=== PATIENT | female | born 1955 | race Two or more races ===

== ENCOUNTER 2024-11-01 04:34 | Inpatient (IN) | payer OTHER ==
[~2024-11-01] VITALS: Ht 152.4 cm; Wt 83.1 kg
[2024-11-01 04:58] LABS: HEMOGLOBIN 7.5 g/dL (12.0-16.0); MEAN CORPUSCULAR HEMOGLOBIN 28.6 pg (26.0-34.0); MEAN CORPUSCULAR HGB CONC 32.6 G/dL (31.0-37.0); MEAN CORPUSCULAR VOLUME 88 fL (80-100); PLATELET COUNT (AUTO) 32 K/uL (150-450); RED BLOOD CELL COUNT(AUTO) 2.62 MIL/uL (4.00-5.20); RED CELL DISTRIBUTION WIDTH 17.1 % (11.5-14.5); WHITE BLOOD COUNT (AUTO) 1.8 K/uL (4.5-11.0)
[2024-11-01 05:09] LABS: CALCIUM, TOTAL 8.1 mg/dL (8.8-10.5); CREATININE 2.69 mg/dL (0.60-1.30); POTASSIUM 4.3 mmol/L (3.5-5.1)
[2024-11-01 05:12] LABS: PROTHROMBIN TIME 16.4 SEC (9.4-11.6)
[2024-11-01 05:13] LABS: ALBUMIN 2.4 g/dL (3.4-5.0); BILIRUBIN,TOTAL 1.1 mg/dL (0.1-1.0); MAGNESIUM 2.5 mg/dL (1.80-2.40); PHOSPHORUS 3.2 mg/dL (2.5-4.9); TOTAL PROTEIN, SERUM 5.9 g/dL (6.4-8.2)
[2024-11-01 05:19] LABS: TROPONIN I-HIGH SENSITIVITY 14 ng/L (<51)
[2024-11-01 05:27] LABS: BAND NEUTROPHILS % (MANUAL) 0 % (0-5)
[2024-11-01 05:30] LABS: ALCOHOL, BLOOD (SERUM) < 3 mg/dL (0-10)
[2024-11-01 05:31] LABS: LACTIC ACID 2.1 mmol/L (0.4-2.0)
[2024-11-01] MEDS: LevETIRAcetam 1,000 MG in DEXTROSE 5%-WATER 100 ML IV ONE (05:36)
[2024-11-01 05:40] LABS: EOSINOPHILS % (MANUAL) 2 % (1-6); LYMPHOCYTES % (MANUAL) 11 % (22-44); MONOCYTES % (MANUAL) 10 % (2-9); SEGMENTED NEUTROPHILS % 77 % (40-70); TOTAL CELLS COUNTED 100
[2024-11-01 05:41] LABS: BUFFY COAT SMEAR PREP YES (NOT DONE)
[2024-11-01 06:23] LABS: INFLUENZA TYPE A NEGATIVE FOR TYPE A (NEGATIVE); INFLUENZA TYPE B NEGATIVE FOR TYPE B (NEGATIVE)
[2024-11-01] MEDS: LACTULOSE 200 GM/300 ML RECTAL SOLUTION PR ONE (06:23)
[2024-11-01 06:35] LABS: APPEARANCE,URINE CLEAR (CLEAR); BILIRUBIN,URINE NEGATIVE (NEGATIVE); COLOR,URINE LIGHT YELLOW (YELLOW); GLUCOSE, URINE (UA) NEGATIVE (NEGATIVE); KETONES,URINE NEGATIVE (NEGATIVE); LEUKOCYTE ESTERASE ,URINE NEGATIVE (NEGATIVE); NITRATE,URINE NEGATIVE (NEGATIVE); OCCULT BLOOD,URINE NEGATIVE (NEGATIVE); PH,URINE 5.5 (5.0-8.0); PH,URINE DRUG SCREEN 5.5 (5.0-8.0); PROTEIN,URINE NEGATIVE (NEGATIVE); SPECIFIC GRAVITIY, URINE 1.009 (1.003-1.030); UROBILINOGEN,URINE <=1.0 mg/dL (<=1.0)
[2024-11-01 06:41] LABS: ALCOHOL, URINE DRUG SCREEN NEGATIVE (NEGATIVE); AMPHET/METH SCREEN,URINE NEGATIVE (NEGATIVE); BARBITURATE SCREEN, URINE NEGATIVE (NEGATIVE); BENZODIAZEPINES SCREEN,URINE NEGATIVE (NEGATIVE); CANNABINOID SCREEN,URINE NEGATIVE (NEGATIVE); COCAINE SCREEN,URINE NEGATIVE (NEGATIVE); METHADONE SCREEN, URINE NEGATIVE (NEGATIVE); OPIATE SCREEN,URINE POSITIVE (NEGATIVE); PHENCYCLIDINE SCREEN,URINE NEGATIVE (NEGATIVE)
[2024-11-01 08:48] LABS: BACTERIA,URINE None Seen /HPF (None Seen); RBC,URINE 0-2 /HPF (0-2); SQUAMOUS EPITHELIAL CELL,UR Few /LPF (None Seen); WBC,URINE 0-2 /HPF (0-5)
[2024-11-01 11:05] LABS: TROPONIN I-HIGH SENSITIVITY 16 ng/L (<51)
[2024-11-01] MEDS ORDERED: VITA-369 PO (11:10)
[2024-11-01] MEDS ORDERED: LACT10SO10 PO (11:10)
[2024-11-01] MEDS ORDERED: CARV6.25 PO (11:10)
[2024-11-01] MEDS ORDERED: PANT-31 PO (11:10)
[2024-11-01] MEDS ORDERED: EZET10TA57 PO (11:10)
[2024-11-01] MEDS ORDERED: ANUSHCS PR (11:10)
[2024-11-01] MEDS ORDERED: CHOL25TA4 PO (11:10)
[2024-11-01] MEDS ORDERED: GLIP5TAB16 PO (11:10)
[2024-11-01] MEDS ORDERED: FURO40TA6 PO (11:10)
[2024-11-01] MEDS ORDERED: INSNPH SQ (11:10)
[2024-11-01] MEDS ORDERED: LACT1CAP58 PO (11:10)
[2024-11-01] MEDS ORDERED: HYDR10TA31 PO (11:10)
[2024-11-01] MEDS ORDERED: RIFAX550 PO (11:10)
[2024-11-01] MEDS ORDERED: MAGN400T57 PO (11:10)
[2024-11-01] MEDS ORDERED: THIA100V4 IM (11:10)
[2024-11-01 16:15] VITALS: BP 130/55; PULSE 90; RESP 19; TEMP 98.9; O2SAT 99
[2024-11-01 20:35] VITALS: BP 139/55; PULSE 76; RESP 14; TEMP 98.8; O2SAT 99
[2024-11-01 20:40] LABS: GLUCOMETER DEV NAME(LOC) 5S.2D; GLUCOSE,POINT OF CARE 124 MG/DL (70-110)
[2024-11-02 00:20] VITALS: BP 139/59; PULSE 73; RESP 16; TEMP 99.4; O2SAT 99
[2024-11-02 03:35] LABS: TROPONIN I-HIGH SENSITIVITY 15 ng/L (<51)
[2024-11-02 04:53] VITALS: BP 142/58; PULSE 72; RESP 14; TEMP 98.7; O2SAT 99
[2024-11-02] MEDS ORDERED: DEXTROSE 5%-0.45% SODIUM CHL 1,000 ML IV ONE (05:00)
[2024-11-02 06:11] LABS: GLUCOMETER DEV NAME(LOC) 5S.2D; GLUCOSE,POINT OF CARE 112 MG/DL (70-110)
[2024-11-02 06:11] LABS: GLUCOMETER DEV NAME(LOC) 5S.2D; GLUCOSE,POINT OF CARE 120 MG/DL (70-110)
[2024-11-02] MEDS: DEXTROSE 5%-0.45% SODIUM CHL 1,000 ML IV ONE (07:45)
[2024-11-02 08:39] LABS: BASOPHILS % (AUTO) 0.3 % (0.0-2.0); EOSINOPHILS % (AUTO) 1.6 % (1.0-6.0); HEMATOCRIT 22.2 % (36-46); HEMOGLOBIN 7.1 g/dL (12.0-16.0); LYMPHOCYTES # (AUTO) 0.2 K/uL (1.0-4.8); LYMPHOCYTES % (AUTO) 9.8 % (22.0-44.0); MEAN CORPUSCULAR HEMOGLOBIN 28.5 pg (26.0-34.0); MEAN CORPUSCULAR HGB CONC 32.2 G/dL (31.0-37.0); MEAN CORPUSCULAR VOLUME 89 fL (80-100); MONOCYTES # (AUTO) 0.2 K/uL (0.1-1.0); MONOCYTES % (AUTO) 9.6 % (2.0-9.0); NEUTROPHILS # (AUTO) 1.6 K/uL (1.8-7.7); NEUTROPHILS % (AUTO) 78.7 % (40.0-70.0); PLATELET COUNT (AUTO) 24 K/uL (150-450); RED CELL DISTRIBUTION WIDTH 17.4 % (11.5-14.5); WHITE BLOOD COUNT (AUTO) 2.1 K/uL (4.5-11.0)
[2024-11-02 08:42] VITALS: BP 140/52; PULSE 72; RESP 18; TEMP 99.5; O2SAT 98
[2024-11-02 08:53] LABS: CALCIUM, TOTAL 7.9 mg/dL (8.8-10.5); CREATININE 2.03 mg/dL (0.60-1.30); POTASSIUM 4.1 mmol/L (3.5-5.1)
[2024-11-02] MEDS: LACTULOSE 20 GM/30 ML SOLUTION UDCUP NG SCH (08:57)
[2024-11-02] MEDS ORDERED: DEXTROSE 50%-WATER 25 GM/50 ML SYRINGE IVP PRN (11:30)
[2024-11-02] MEDS ORDERED: INSULIN LISPRO 100 UNITS/ML SQ PRN (11:30)
[2024-11-02 12:16] VITALS: BP 127/57; PULSE 66; RESP 18; TEMP 99.3; O2SAT 99
[2024-11-02] MEDS: FUROSEMIDE 40 MG/4 ML VIAL IVP ONE (12:47)
[2024-11-02 16:14] VITALS: BP 140/55; PULSE 62; RESP 18; TEMP 98.7; O2SAT 100
[2024-11-02] MEDS ORDERED: LACT10SO10 PO (19:16)
== END 2024-11-02 18:10 | disposition short-term general hospital (02) | DRG 442 ==
LOC: EMS 04:35 → EDH 07:34 → 5S 16:01
PROVIDERS: ADMIT Hospitalist; ATTEND Hospitalist
DX: K76.82 Hepatic encephalopathy (principal); D61.818 Other pancytopenia; E11.22 Type 2 diabetes mellitus with diabetic chronic kidney disease; E78.00 Pure hypercholesterolemia, unspecified; E88.09 Other disorders of plasma-protein metabolism, not elsewhere classified; I12.9 Hypertensive chronic kidney disease with stage 1 through stage 4 chronic kidney disease, or unspecified chronic kidney disease; N18.9 Chronic kidney disease, unspecified; I25.10 Atherosclerotic heart disease of native coronary artery without angina pectoris; K74.60 Unspecified cirrhosis of liver; Z79.899 Other long term (current) drug therapy; Z88.1 Allergy status to other antibiotic agents; Z91.041 Radiographic dye allergy status; Z90.49 Acquired absence of other specified parts of digestive tract; Z86.718 Personal history of other venous thrombosis and embolism
CPT/HCPCS: 71045; 80048; 80053; 80307; 81001; 82140; 82948; 82962; 83605; 83735; 84100; 84484; 85009; 85025; 85610; 85730; 86850; 86900; 86901; 87804; 92610; 93005; 99285; G0378; G0480; J0712; J1940; J7060; 36415-L1; 36415-TC; 70450; 70450-TC

== ENCOUNTER 2024-12-18 08:00 | Inpatient (IN) | payer OTHER ==
[~2024-12-18] VITALS: Ht 152.4 cm; Wt 71.9 kg
[~2024-12-18 08:00] MED LIST: ANUSHCS PR; CARV6.25 PO; CHOL25TA4 PO; EZET10TA57 PO; FURO40TA6 PO; GLIP5TAB16 PO; HYDR10TA31 PO; INSNPH SQ; LACT1CAP58 PO; MAGN400T57 PO; PANT-31 PO; RIFAX550 PO; THIA100V4 IM; VITA-369 PO
[2024-12-18 08:15] LABS: HEMATOCRIT 26.6 % (36-46); HEMOGLOBIN 8.7 g/dL (12.0-16.0); MEAN CORPUSCULAR HEMOGLOBIN 29.2 pg (26.0-34.0); MEAN CORPUSCULAR HGB CONC 32.7 G/dL (31.0-37.0); MEAN CORPUSCULAR VOLUME 89 fL (80-100); PLATELET COUNT (AUTO) 30 K/uL (150-450); RED BLOOD CELL COUNT(AUTO) 2.98 MIL/uL (4.00-5.20); RED CELL DISTRIBUTION WIDTH 23.6 % (11.5-14.5); WHITE BLOOD COUNT (AUTO) 1.4 K/uL (4.5-11.0)
[2024-12-18 08:18] LABS: BAND NEUTROPHILS % (MANUAL) 0 % (0-5)
[2024-12-18 08:25] LABS: ANION GAP 8 mmol/L (8-16); CALCIUM, TOTAL 8.4 mg/dL (8.8-10.5); CARBON DIOXIDE 24 mmol/L (22-29); CHLORIDE 112 mmol/L (98-107); CREATININE 2.84 mg/dL (0.60-1.30); GLOMERULAR FILTR. RATE CALC 17 mL/min (>60); GLUCOSE,RANDOM 136 mg/dL (70-110); POTASSIUM 4.9 mmol/L (3.5-5.1); SODIUM SERUM 144 mmol/L (136-145); UREA NITROGEN, BLOOD 52 mg/dL (7-18)
[2024-12-18 08:30] LABS: PROTHROMBIN TIME 15.8 SEC (9.4-11.6)
[2024-12-18 08:34] LABS: ALANINE AMINOTRANSFERASE 20 U/L (12-78); ALBUMIN 2.4 g/dL (3.4-5.0); ALKALINE PHOSPHATASE 86 U/L (46-116); ASPARTATE AMINOTRANSFERASE 33 U/L (15-37); BILIRUBIN,TOTAL 1.3 mg/dL (0.1-1.0); LACTIC ACID 1.5 mmol/L (0.4-2.0); LIPASE 120 U/L (16-77); TOTAL PROTEIN, SERUM 5.8 g/dL (6.4-8.2); TROPONIN I-HIGH SENSITIVITY 12 ng/L (<51)
[2024-12-18 08:35] LABS: ALCOHOL, BLOOD (SERUM) < 3 mg/dL (0-10)
[2024-12-18 08:52] LABS: LYMPHOCYTES % (MANUAL) 43 % (22-44); MONOCYTES % (MANUAL) 3 % (2-9); SEGMENTED NEUTROPHILS % 54 % (40-70); TOTAL CELLS COUNTED 100
[2024-12-18 08:53] LABS: RBC MORPHOLOGY COMMENT ABNORMAL RBC MORPH
[2024-12-18 09:40] LABS: AMPHET/METH SCREEN,URINE NEGATIVE (NEGATIVE); BARBITURATE SCREEN, URINE NEGATIVE (NEGATIVE); BENZODIAZEPINES SCREEN,URINE NEGATIVE (NEGATIVE); CANNABINOID SCREEN,URINE NEGATIVE (NEGATIVE); COCAINE SCREEN,URINE NEGATIVE (NEGATIVE); METHADONE SCREEN, URINE NEGATIVE (NEGATIVE); OPIATE SCREEN,URINE NEGATIVE (NEGATIVE); PHENCYCLIDINE SCREEN,URINE NEGATIVE (NEGATIVE)
[2024-12-18] MEDS: LACTULOSE 20 GM/30 ML SOLUTION UDCUP PO ONE (09:40)
[2024-12-18 09:44] LABS: ALCOHOL, URINE DRUG SCREEN NEGATIVE (NEGATIVE)
[2024-12-18 10:05] LABS: APPEARANCE,URINE CLEAR (CLEAR); BILIRUBIN,URINE NEGATIVE (NEGATIVE); COLOR,URINE COLORLESS (YELLOW); GLUCOSE, URINE (UA) NEGATIVE (NEGATIVE); KETONES,URINE NEGATIVE (NEGATIVE); LEUKOCYTE ESTERASE ,URINE NEGATIVE (NEGATIVE); NITRATE,URINE NEGATIVE (NEGATIVE); OCCULT BLOOD,URINE SMALL (NEGATIVE); PH,URINE 6.5 (5.0-8.0); PH,URINE DRUG SCREEN 6.5 (5.0-8.0); PROTEIN,URINE 30-70 mg/dL (NEGATIVE); SPECIFIC GRAVITIY, URINE 1.006 (1.003-1.030); UROBILINOGEN,URINE <=1.0 mg/dL (<=1.0)
[2024-12-18 10:15] LABS: BACTERIA,URINE None Seen /HPF (None Seen); WBC,URINE 0-2 /HPF (0-5)
[2024-12-18] MEDS: LACTULOSE 200 GM/300 ML RECTAL SOLUTION PR ONE ×2 (11:16→15:20)
[2024-12-18 11:28] LABS: COVID AG,FIA SOURCE NASAL SWAB
[2024-12-18 11:46] LABS: SARS-COV2 (COVID) ANTIGEN,FIA Negative (Negative)
[2024-12-18] MEDS ORDERED: FERR324T23 PO (12:15)
[2024-12-18] MEDS ORDERED: TraMADol HCL 50 MG TABLET PO ONE (14:15)
[2024-12-18] MEDS ORDERED: GABAPENTIN 300 MG CAPSULE PO ONE (14:15)
[2024-12-18 14:41] LABS: TROPONIN I-HIGH SENSITIVITY 34 ng/L (<51)
[2024-12-18] MEDS: *CLINICAL-LEVOFLOXACIN IVPB DOSING CLINICAL ONE (15:40)
[2024-12-18] MEDS ORDERED: MORPHINE SULFATE 2 MG/ML SYRINGE IVP PRN (15:45)
[2024-12-18] MEDS ORDERED: ONDANSETRON HCL 4 MG/2 ML VIAL IVP PRN (15:45)
[2024-12-18] MEDS ORDERED: HYDROCODONE/ACETAMINOPHEN 5-325 MG TABLET PO PRN (15:45)
[2024-12-18] MEDS ORDERED: MAGNESIUM HYDROXIDE SUSPENSION 30 ML UDCUP PO PRN (15:45)
[2024-12-18] MEDS ORDERED: ZOLPIDEM TARTRATE 5 MG TABLET PO PRN (15:45)
[2024-12-18] MEDS ORDERED: ACETAMINOPHEN 325 MG TABLET PO PRN (15:45)
[2024-12-18] MEDS ORDERED: BISACODYL 10 MG RECTAL RECTAL SUPPOSITORY PR PRN (15:45)
[2024-12-18] MEDS ORDERED: LEVOFLOXACIN 750 MG/D5% WATER 150 ML IV ONE (16:00)
[2024-12-18] MEDS: HEPARIN SODIUM,PORCINE 5,000 UNITS/ML VIAL SQ SCH (16:00)
[2024-12-18 17:11] VITALS: BP 122/82; PULSE 84; RESP 16; TEMP 98.3; O2SAT 98
[2024-12-18] MEDS ORDERED: SODIUM CHLORIDE 0.9% 250 ML IV ONE (17:44)
[2024-12-18 17:55] VITALS: BP 104/51; PULSE 73; RESP 18; TEMP 98.1; O2SAT 97
[2024-12-18] MEDS: LEVOFLOXACIN 750 MG/D5% WATER 150 ML IV ONE (18:23)
[2024-12-18 20:06] VITALS: BP 131/52; PULSE 62; RESP 18; TEMP 97.9; O2SAT 97
[2024-12-18] MEDS: CARVEDILOL 6.25 MG TABLET PO SCH (20:29)
[2024-12-18] MEDS: RIFAXIMIN 550 MG TABLET PO SCH (20:30)
[2024-12-18] MEDS: DOCUSATE SODIUM 100 MG CAPSULE PO SCH (20:32)
[2024-12-18] MEDS: HydrALAZINE HCL 10 MG TABLET PO SCH (21:00)
[2024-12-18 22:11] LABS: TROPONIN I-HIGH SENSITIVITY 52 ng/L (<51)
[2024-12-19 00:14] VITALS: BP 113/45; PULSE 64; RESP 18; TEMP 98.1; O2SAT 97
[2024-12-19 05:48] VITALS: BP 134/53; PULSE 63; RESP 16; TEMP 98.1; O2SAT 99
[2024-12-19] MEDS: GlipiZIDE 5 MG TABLET PO SCH (06:13)
[2024-12-19 06:33] LABS: TROPONIN I-HIGH SENSITIVITY 35 ng/L (<51)
[2024-12-19 07:56] LABS: HEMATOCRIT 24.6 % (36-46); HEMOGLOBIN 7.8 g/dL (12.0-16.0); MEAN CORPUSCULAR HEMOGLOBIN 28.8 pg (26.0-34.0); MEAN CORPUSCULAR HGB CONC 31.7 G/dL (31.0-37.0); MEAN CORPUSCULAR VOLUME 91 fL (80-100); PLATELET COUNT (AUTO) 26 K/uL (150-450); RED CELL DISTRIBUTION WIDTH 23.9 % (11.5-14.5); WHITE BLOOD COUNT (AUTO) 1.4 K/uL (4.5-11.0)
[2024-12-19 08:00] VITALS: BP 130/62; PULSE 65; RESP 18; TEMP 98.3; O2SAT 99
[2024-12-19 08:32] LABS: BAND NEUTROPHILS % (MANUAL) 3 % (0-5); LYMPHOCYTES % (MANUAL) 43 % (22-44); RBC MORPHOLOGY COMMENT ABNORMAL RBC MORPH; SEGMENTED NEUTROPHILS % 54 % (40-70); TOTAL CELLS COUNTED 100
[2024-12-19] MEDS ORDERED: HYDROCORTISONE 2.5% 30 GM CREAM TP SCH (09:00)
[2024-12-19] MEDS: LACTULOSE 200 GM/300 ML RECTAL SOLUTION PR SCH (09:00)
[2024-12-19] MEDS: FUROSEMIDE 40 MG TABLET PO SCH (09:38)
[2024-12-19] MEDS: EZETIMIBE 10 MG TABLET PO SCH (09:38)
[2024-12-19] MEDS: CHOLECALCIFEROL (VIT D3) 1,000 UNITS [25 MCG] TABLET PO SCH (09:38)
[2024-12-19] MEDS: HYDROCORTISONE 25 MG RECTAL SUPPOSITORY PR SCH (09:39)
[2024-12-19 12:14] VITALS: BP 112/57; PULSE 59; RESP 16; TEMP 97.6; O2SAT 99
[2024-12-19 16:00] VITALS: BP 128/67; PULSE 63; RESP 15; TEMP 97.8; O2SAT 99
[2024-12-19] MEDS ORDERED: SODIUM CHLORIDE 0.9% 250 ML IV ONE (20:06)
[2024-12-19 20:14] VITALS: BP 127/52; PULSE 64; RESP 19; TEMP 98.5; O2SAT 99
[2024-12-19] MEDS: LACTULOSE 20 GM/30 ML SOLUTION UDCUP PO SCH (20:37)
[2024-12-20] MEDS ORDERED: LEVOFLOXACIN 500 MG/D5% WATER 100 ML IV SCH (18:00)
== END 2024-12-19 21:20 | disposition short-term general hospital (02) | DRG 441 ==
LOC: EMS 08:01 → EDBEDREQ 09:00 → EDH 10:36 → 5S 16:51
PROVIDERS: ADMIT Internal Medicine; ATTEND Internal Medicine
DX: K76.82 Hepatic encephalopathy (principal); G93.41 Metabolic encephalopathy; K76.7 Hepatorenal syndrome; N17.9 Acute kidney failure, unspecified; D61.818 Other pancytopenia; K62.5 Hemorrhage of anus and rectum; K74.60 Unspecified cirrhosis of liver; Z20.822 Contact with and (suspected) exposure to COVID-19; K21.9 Gastro-esophageal reflux disease without esophagitis; G47.33 Obstructive sleep apnea (adult) (pediatric); E78.00 Pure hypercholesterolemia, unspecified; I25.10 Atherosclerotic heart disease of native coronary artery without angina pectoris; I12.9 Hypertensive chronic kidney disease with stage 1 through stage 4 chronic kidney disease, or unspecified chronic kidney disease; E11.22 Type 2 diabetes mellitus with diabetic chronic kidney disease; N18.30 Chronic kidney disease, stage 3 unspecified; N28.89 Other specified disorders of kidney and ureter; Z88.8 Allergy status to other drugs, medicaments and biological substances; Z79.899 Other long term (current) drug therapy; Z86.718 Personal history of other venous thrombosis and embolism; Z88.1 Allergy status to other antibiotic agents; Z91.041 Radiographic dye allergy status; Z79.84 Long term (current) use of oral hypoglycemic drugs; Z90.49 Acquired absence of other specified parts of digestive tract
CPT/HCPCS: 51702; 71045; 76700; 80053; 80307; 81001; 82140; 82948; 83605; 83690; 84484; 85025; 85610; 85730; 86850; 86900; 86901; 92610; 93005; 99291; G0480; J1956; J7050; 36415-L1; 36415-TC; 70450; 70450-TC